=== PATIENT | female | born 1950 | race Caucasian/White ===

== ENCOUNTER 2017-01-31 06:12 | Observation (INO) | payer MEDICARE ==
[2017-01-31] VITALS (14 sets, daily range): BP systolic 86–164; BP diastolic 48–90; PULSE 66–81; RESP 16–22; TEMP 96–97.9; O2SAT 93–99
[~2017-01-31] VITALS: Ht 162.6 cm; Wt 60.0 kg
[~2017-01-31 06:12] MED LIST: ROBA750T3 PO; TYLE3 PO
[2017-01-31] MEDS ORDERED: ATOR20TA15 PO (07:19)
[2017-01-31] MEDS ORDERED: ASPI81TA11 PO (07:19)
[2017-01-31] MEDS ORDERED: MIDAZOLAM HCL 5 MG/5 ML VIAL ONE ×2 (07:39→15:02)
[2017-01-31] MEDS ORDERED: LIDOCAINE HCL 1% 20 ML VIAL ONE ×2 (07:57→15:01)
[2017-01-31] MEDS ORDERED: LORazepam 2 MG/ML VIAL ONE (08:33)
--- NOTE | 2017-01-31 09:44 | PD.RAD ---
Post CT Procedure Prog Note Pre Procedure Diagnosis: (1) Lung nodule Post Procedure Diagnosis: Procedure Date: Jan 31, 2017 Supervising Radiologist: Mark Mckeon Proceduralist/Assist: hannah escalera Estimated blood loss: none Anesthesia: Conscious Sedation Plan of Activity Patient to Unit: ROPU Patient Condition: Good Additional Comments: small pneumothorax on left See PACS Report for procedural detail/treatment Mark Mckeon MD Jan 31, 2017 09:44
[2017-01-31] MEDS ORDERED: oxyCODONE/ACETAMINOPHEN 5 MG/325 MG TAB PO PRN ×2 (09:45→16:15)
--- NOTE | 2017-01-31 11:42 | RADRPT ---
EXAM DATE/TIME: 01/31/2017 10:26 [facility] COMPARISON: No previous studies available for comparison. INDICATIONS : Status post left lung biopsy. MEDICAL HISTORY : None. SURGICAL HISTORY : None. ENCOUNTER: Subsequent ACUITY: 1 day PAIN SCORE: 4/10 LOCATION: chest FINDINGS: A single frontal expiratory view of the chest was performed. Tiny left-sided pneumothorax. No mediast inal shift. Left apical nodule.. The cardio-mediastinal contours and bronchopulmonary markings are unremarkable for an expiratory exam . Osseous structures are intact. CONCLUSION: Tiny pneumothorax on the left. Mark Mckeon MD on January 31, 2017 at 11:38 Board Certified Radiologist. This report was verified electronically.
[2017-01-31] MEDS ORDERED: oxyCODONE/ACETAMINOPHEN 5 MG/325 MG TAB PO ONE (12:00)
--- NOTE | 2017-01-31 12:36 | RADRPT ---
EXAM DATE/TIME: 01/31/2017 12:27 [facility] COMPARISON: CHEST EXPIRATION ONLY, January 31, 2017, 10:26. INDICATIONS : Post lung biopsy. MEDICAL HISTORY : None. SURGICAL HISTORY : None. ENCOUNTER: Subsequent ACUITY: 1 day PAIN SCORE: 0/10 LOCATION: Left upper chest FINDINGS: A single frontal expiratory view of the chest was performed. Left apical pneumothorax measuring 1.4 c m pleural separation. No mediastinal shift. Left apical nodule. The cardio-mediastinal contours and bronchopulmonary markings are unremarkable for an expiratory exam . Osseous structures are intact. CONCLUSION: Slightly enlarging left pneumothorax. Mark Mckeon MD on January 31, 2017 at 12:34 Board Certified Radiologist. This report was verified electronically.
--- NOTE | 2017-01-31 14:52 | RADRPT ---
EXAM DATE/TIME: 01/31/2017 13:59 [facility] COMPARISON: CHEST EXPIRATION ONLY, January 31, 2017, 12:27. INDICATIONS : Post lung biopsy; suspected pneumothorax. MEDICAL HISTORY : None. SURGICAL HISTORY : None. ENCOUNTER: Subsequent ACUITY: 1 day PAIN SCORE: 5/10 LOCATION: Left upper chest FINDINGS: A single frontal expiratory view of the chest was performed. Enlarging left-sided pneumothorax. No me diastinal shift. The cardio-mediastinal contours and bronchopulmonary markings are unremarkable for an expiratory exam . Osseous structures are intact. CONCLUSION: Enlarging left-sided pneumothorax. Chest tube will be placed. Patient notified of these findings. Mark Mckeon MD on January 31, 2017 at 14:50 Board Certified Radiologist. This report was verified electronically.
--- NOTE | 2017-01-31 15:13 | RADRPT ---
EXAM DATE/TIME: 01/31/2017 08:45 [facility] COMPARISON: No previous studies available for comparison. INDICATIONS : Left lung nodule. SEDATION TIME: 40 minutes BIOPSY SITE: Left MEDICATION(S): 1.) 2 mg midazolam (Versed) IV 2.) 100 mcg fentanyl (Sublimaze) IV DEVICE(S): 1.) 20 gauge Temno core biopsy needle MEDICAL HISTORY : Chronic obstructive pulmonary disease. SURGICAL HISTORY : None. ENCOUNTER: Initial ACUITY: 1 day PAIN SCORE: 0/10 LOCATION: Left chest A total of three core specimen(s) were obtained and sent to the laboratory for pathologic evaluation. PROCEDURE: 1. CT guided lung biopsy. 2. Conscious sedation with continuous EKG and oximetry monitoring. 3. EKG and oximetry remained stable throughout the procedure. Prior to the procedure informed consent was obtained. Any appropriate prior imaging studies were rev iewed. Using automated exposure control and adjustment of the mA and/or kV according to patient size, radiation dose was kept as low as reasonably achievable to obtain optimal diagnostic quality images. DICOM format image data is available electronically for review and comparison. The site was prepped in a sterile fashion. Full sterile technique was used, including cap, mask, chris rile gloves and gown and a large sterile sheet. Hand hygiene and 2% chlorhexidine and/or betadine/al cohol prep was utilized per protocol for cutaneous antisepsis. The skin and subcutaneous tissues wer e infiltrated with local anesthetic solution. With CT guidance the previously identified target was localized. Biopsy was performed using the presc ribed needle as above. Adequate hemostasis was obtained with compression at the puncture site. Follow-up CT scan reveals small pneumothorax. Conscious sedation was performed with the prescribed dosages and duration as above in the presence of an independent trained radiology nurse to assist in the monitoring of the patient. EKG and oximetry remained stable throughout the procedure. The patient tolerated the procedure well and there were no complications. The patient was sent to Radiology Outpatient Unit in stable condition. CONCLUSION: Successful CT guided biopsy of spiculated nodule left upper lobe. Small pneumothorax will be monitor ed with serial chest x-rays. Mark Mckeon MD on January 31, 2017 at 15:10 Board Certified Radiologist. This report was verified electronically.
--- NOTE | 2017-01-31 16:13 | PD.RAD ---
Post CT Procedure Prog Note Pre Procedure Diagnosis: (1) Mediastinal lymphadenopathy (2) Pneumothorax of left lung after biopsy (3) Lung nodule Post Procedure Diagnosis: Procedure Date: Jan 31, 2017 Supervising Radiologist: Mark Mckeon Proceduralist/Assist: hannah chow Estimated blood loss: none Anesthesia: Conscious Sedation Plan of Activity Patient to Unit: ROPU Patient Condition: Good See PACS Report for procedural detail/treatment Mark Mckeon MD Jan 31, 2017 16:13
[2017-01-31] MEDS ORDERED: MORPHINE SULFATE 4 MG/ML INJ IV PUSH STA (16:34)
[2017-01-31] MEDS ORDERED: ONDANSETRON HCL 4 MG/2 ML VIAL IV PUSH PRN (16:45)
--- NOTE | 2017-01-31 16:50 | HHI.HP ---
HPI Service [facility] Hospitalists Primary Care Physician Rafy Barahona, DO Admission Diagnosis Pneumothorax Chief Complaint: SOB Travel History International Travel<30 Days: No Contact w/Intl Traveler <30 Da: No Traveled to Known Affected Are: No History of Present Illness Mrs. Morrow is a pleasant 66 y/o female with COPD, tobacco use, and hyperlipidemia who was recently found to have a 1cm left upper lung mass. She reported to [facility] today to have a CT guided lung biopsy. Pt was noted to initially have a small pneumothorax following biopsy and was monitored in Radiology with serial CXR but unfortunately the pneumothorax enlarged and a CT was placed. Patient is being admitted for CT management and symptoms control. She is having quite a bit of pain with deep breathing on the left chest and some discomfort from the CT tube itself. She is on NC currently. Pt has continued to smoke prior to this admission, 1ppd x 45 years (since age 21). Denies any dizziness, palpitations, chest pain, abd pain, nausea/vomiting, fevers or chills. Review of Systems Constitutional: DENIES: Fever, Chills Eyes: DENIES: Vision loss Ears, nose, mouth, throat: DENIES: Hearing loss Respiratory: COMPLAINS OF: Shortness of breath, DENIES: Cough Cardiovascular: DENIES: Chest pain, Dyspnea on Exertion Gastrointestinal: DENIES: Abdominal pain, Constipation, Nausea, Vomiting Genitourinary: DENIES: Hematuria Musculoskeletal: DENIES: Back pain, Neck pain Integumentary: DENIES: Rash Neurologic: DENIES: Headache Psychiatric: DENIES: Confusion Past Family Social History Past Medical History COPD Tobacco use Hyperlipidemia Rheumatoid arthritis Polymyalgia rheumatica Thyroid nodule Past Surgical History Excision of Sheikh's Neuroma, 1979 Reported Medications Aspirin EC (Aspirin) 81 Mg Tabdr 81 Mg PO DAILY Atorvastatin (Atorvastatin Calcium) 20 Mg Tab 20 Mg PO HS Allergies: Coded Allergies: amoxicillin (Verified Adverse Reaction, Intermediate, Diarrhea, 01/31/17) Family History Patient is adopted, biological family history is unknown Pt has a daughter in her 40's who is healthy Social History (+)Tobacco use, 1ppd x 45 years Denies any alcohol use Physical Exam Vital Signs Vital Signs Date Time Temp Pulse Resp B/P (MAP) Pulse Ox O2 Delivery O2 Flow Rate FiO2 01/31/17 12:30 66 18 86/59 (68) 97 01/31/17 12:00 69 18 110/72 (85) 97 01/31/17 11:00 71 16 129/76 (93) 96 01/31/17 10:37 68 16 161/90 (113) 94 01/31/17 10:00 69 16 111/70 (84) 94 01/31/17 09:45 67 16 114/63 (80) 94 01/31/17 09:30 97.9 73 18 133/72 (92) 93 01/31/17 09:30 97.8 73 18 133/72 (92) 93 01/31/17 07:00 94 Room Air 01/31/17 06:48 97.9 74 20 121/77 (92) 94 Physical Exam GENERAL: This is a well-nourished, well-developed patient, in no apparent distress. SKIN: No rashes, ecchymoses or lesions. Cool and dry. HEENT: Atraumatic. Normocephalic. No temporal or scalp tenderness. No scleral icterus. Airway patent. NECK: Trachea midline, supple, nontender. CARDIO: Regular. RESP: Decreased air movement on the left side, CT in the left upper chest ABD: +BS, soft, non-tender, nondistended. EXT: Extremities without clubbing, cyanosis, or edema. NEURO: Awake and alert. Motor and sensory grossly within normal limits. Normal speech. Imaging Last Impressions Chest X-Ray 01/31/17 1030 Signed Impressions: Service Date/Time: January 10:26 - CONCLUSION: Tiny pneumothorax on the left. Mark Mckeon MD Lung Biopsy CT 01/31/17 0000 Signed Impressions: Service Date/Time: January 08:45 - CONCLUSION: Successful CT guided biopsy of spiculated nodule left upper lobe. Small pneumothorax will be monitored with serial chest x-rays. Mark Mckeon MD Septic Shock Reassessment Heart: Regular rate and rhythm Lungs: Other Skin: Warm Caprini VTE Risk Assessment Caprini VTE Risk Assessment: Mod/High Risk (score >= 2) Caprini Risk Assessment Model Point Value = 1 Point Value = 2 Point Value = 3 Point Value = 5 Age 41-60 Minor surgery BMI > 25 kg/m2 Swollen legs Varicose veins or History of unexplained or recurrent spontaneous Oral contraceptives or hormone replacement Sepsis (< 1 month) Serious lung disease, including pneumonia (< 1 month) Abnormal pulmonary function Acute myocardial infarction Congestive heart failure (< 1 month) History of inflammatory bowel disease Medical patient at bed rest Age 61-74 Arthroscopic surgery Major open surgery (> 45 min) Laparoscopic surgery (> 45 min) Malignancy Confined to bed (> 72 hours) Immobilizing plaster cast Central venous access Age >= 75 History of VTE Family history of VTE Factor V Leiden Prothrombin [id number] Lupus anticoagulant Anticardiolipin antibodies Elevated serum homocysteine Heparin-induced thrombocytopenia Other congenital or acquired thrombophilia Stroke (< 1 month) Elective arthroplasty Hip, pelvis, or leg fracture Acute spinal cord injury (< 1 month) Prophylaxis Regimen Total Risk Factor Score Risk Level Prophylaxis Regimen 0-1 Low Early ambulation 2 Moderate Order ONE of the following: *Sequential Compression Device (SCD) *Heparin 5000 units SQ BID 3-4 Higher Order ONE of the following medications: *Heparin 5000 units SQ TID *Enoxaparin/Lovenox 40 mg SQ daily (WT < 150 kg, CrCl > 30 mL/min) *Enoxaparin/Lovenox 30 mg SQ daily (WT < 150 kg, CrCl > 10-29 mL/min) *Enoxaparin/Lovenox 30 mg SQ BID (WT < 150 kg, CrCl > 30 mL/min) AND/OR *Sequential Compression Device (SCD) 5 or more Highest Order ONE of the following medications: *Heparin 5000 units SQ TID (Preferred with Epidurals) *Enoxaparin/Lovenox 40 mg SQ daily (WT < 150 kg, CrCl > 30 mL/min) *Enoxaparin/Lovenox 30 mg SQ daily (WT < 150 kg, CrCl > 10-29 mL/min) *Enoxaparin/Lovenox 30 mg SQ BID (WT < 150 kg, CrCl > 30 mL/min) AND *Sequential Compression Device (SCD) Assessment and Plan Problem List: (1) Pneumothorax of left lung after biopsy ICD Codes: J95.811 - Postprocedural pneumothorax Status: Acute Plan: - Pt is a 66 y/o female with COPD, tobacco abuse and hyperlipidemia - She was admitted to radiology for CT guided lung biopsy for a recently noted left lung mass which was noted on CT Thorax (01/10/17) which noted 1cm spiculated soft tissue mass in the left upper lobe posteriorly, highly suggestive of lung carcinoma. - Pt had CT guided biopsy on 01/31 and unfortunately developed a left sided pneumothorax. This was monitored with repeat CXR but the pneumothorax enlarged and pt had CT placed in left upper chest today - Radiology to manage CT - Repeat CXR in AM - Labs in AM - Supplemental O2 - Pain control PRN - Telemetry - DVT prophylaxis with SCDs (2) Lung nodule ICD Codes: R91.1 - Solitary pulmonary nodule Status: Chronic Plan: - See above (3) Tobacco abuse ICD Codes: Z72.0 - Tobacco use Status: Chronic Plan: - Chronic tobacco use, 1ppd x 45 years - Pt declined nicotine patch (4) Hyperlipidemia ICD Codes: E78.5 - Hyperlipidemia, unspecified Status: Chronic Chika Lan Jan 31, 2017 16:50
--- NOTE | 2017-01-31 16:54 | RADRPT ---
EXAM DATE/TIME: 01/31/2017 16:46 [facility] COMPARISON: CHEST EXPIRATION ONLY, January 31, 2017, 13:59. INDICATIONS : Post chest tube placement; pneumothorax. MEDICAL HISTORY : None. SURGICAL HISTORY : None. ENCOUNTER: Subsequent ACUITY: 1 day PAIN SCORE: 9/10 LOCATION: Left upper chest FINDINGS: Single frontal chest demonstrate a well-positioned 8 [place]ian small bore chest tube. There is complete reinflation of the left lung. There is minimal emphysematous change within the left chest wall. The p atient's left apical lung nodule and mediastinal adenopathy are not visible by chest x-ray. The right lung is clear. The bony structures are intact. CONCLUSION: 1. Left chest tube in good position with no evidence of pneumothorax. Abner Spence MD on January 31, 2017 at 16:52 Board Certified Radiologist. This report was verified electronically.
[2017-01-31] MEDS: ACETAMINOPHEN/HYDROcodone 325 MG/5 MG TAB PO PRN (18:05)
[2017-01-31] MEDS: MORPHINE SULFATE 4 MG/ML INJ IV PUSH PRN (20:19)
[2017-02-01] MEDS: ACETAMINOPHEN/HYDROcodone 325 MG/5 MG TAB PO PRN ×3 (00:11→12:13)
[2017-02-01 00:28] VITALS: BP 118/54; PULSE 71; RESP 21; TEMP 97.1; O2SAT 97
[2017-02-01 04:50] VITALS: BP 121/60; PULSE 72; RESP 19; TEMP 97; O2SAT 94
[2017-02-01 06:50] LABS: BASOPHIL % 0.8 % (0.0-2.0); EOSINOPHIL # 0.2 TH/MM3 (0-0.4); EOSINOPHIL % 3.6 % (0.0-4.0); HEMATOCRIT 35.6 % (35.0-46.0); HEMO FLAGS DIFF FINAL; LYMPH % 20.9 % (9.0-44.0); MEAN CELL VOLUME 85.2 FL (80.0-100.0); MEAN CORPUSCULAR HEMOGLOBIN 28.1 PG (27.0-34.0); MEAN CORPUSCULAR HGB CONC 32.9 % (32.0-36.0); MONO % 11.6 % (0.0-8.0); NEUT % 63.1 % (16.0-70.0); PLATELET COUNT 280 TH/MM3 (150-450); RED BLOOD COUNT 4.18 MIL/MM3 (4.00-5.30); RED CELL DISTRIBUTION WIDTH 15.5 % (11.6-17.2); WHITE BLOOD COUNT 4.8 TH/MM3 (4.0-11.0)
[2017-02-01 07:14] LABS: BICARBONATE 27.9 MEQ/L (21.0-32.0); POTASSIUM 4.4 MEQ/L (3.5-5.1)
[2017-02-01 07:31] VITALS: BP 99/54; PULSE 70; RESP 17; TEMP 95.1; O2SAT 96
--- NOTE | 2017-02-01 07:49 | RADRPT ---
EXAM DATE/TIME: 02/01/2017 06:36 [facility] COMPARISON: CHEST EXPIRATION ONLY, January 31, 2017, 16:46. INDICATIONS : Post left lung biopsy. Evaluate for pneumothorax. MEDICAL HISTORY : None. SURGICAL HISTORY : None. ENCOUNTER: Subsequent ACUITY: 2 days PAIN SCORE: 0/10 LOCATION: Left chest FINDINGS: A single frontal expiratory view of the chest was performed. The lungs are symmetrically aerated and clear. No evidence of pneumothorax. Mediastinal structures are in the midline. Subcutaneous emphys fortunato on the left. Left-sided chest tube is again seen. The cardio-mediastinal contours and bronchopulmonary markings are unremarkable for an expiratory exam . Osseous structures are intact. CONCLUSION: Left chest tube without pneumothorax. Mark Mckeon MD on February 01, 2017 at 7:45 Board Certified Radiologist. This report was verified electronically.
--- NOTE | 2017-02-01 07:56 | RADRPT ---
EXAM DATE/TIME: 01/31/2017 15:15 [facility] COMPARISON: No previous studies available for comparison. INDICATIONS : Mediastinal lymph node biopsy SEDATION TIME: 30 minutes BIOPSY SITE: Mediastinal lymph node MEDICATION(S): 1.) 2.5 mg midazolam (Versed) IV 2.) 125 mcg fentanyl (Sublimaze) IV DEVICE(S): 1.) 20 gauge Temno core biopsy needle MEDICAL HISTORY : Chronic obstructive pulmonary disease. Arthritis. SURGICAL HISTORY : None. ENCOUNTER: Initial ACUITY: 1 day PAIN SCORE: 0/10 LOCATION: chest A total of two core specimen(s) were obtained and sent to the laboratory for pathologic evaluation. PROCEDURE: 1. CT guided mediastinallymph node biopsy. Prior to the procedure informed consent was obtained. Any appropriate prior imaging studies were rev iewed. Using automated exposure control and adjustment of the mA and/or kV according to patient size, radiat ion dose was kept as low as reasonably achievable to obtain optimal diagnostic quality images. DICOM format image data is available electronically for review and comparison. The site was prepped in a sterile fashion. Full sterile technique was used, including cap, mask, chris rile gloves and gown and a large sterile sheet. Hand hygiene and 2% chlorhexidine and/or betadine/al cohol prep was utilized per protocol for cutaneous antisepsis. The skin and subcutaneous tissues wer e infiltrated with local anesthetic solution. With CT guidance the previously identified target was localized. Biopsy was performed using the presc ribed needle as above. Adequate hemostasis was obtained with compression at the puncture site. Follow-up CT scan reveals no hemorrhage. The patient tolerated the procedure well and there were no complications. The patient was returned to the Radiology Outpatient Unit in stable condition. CONCLUSION: Uncomplicated CT guided biopsy of the anterior mediastinal lymph node. Once the mediastinal lymph nod e was biopsied and anterior chest tube was placed on the left. Mark Mckeon MD on February 01, 2017 at 7:53 Board Certified Radiologist. This report was verified electronically.
--- NOTE | 2017-02-01 07:57 | RADRPT ---
EXAM DATE/TIME: 01/31/2017 15:15 INDICATIONS : Left pneumothorax SEDATION TIME: 30 minutes MEDICATION(S): 1.) 2.5 mg midazolam (Versed) IV 2.) 125 mcg fentanyl (Sublimaze) IV DEVICE(S): 1.) 8 Fr Linn MEDICAL HISTORY : Chronic obstructive pulmonary disease. Arthritis. SURGICAL HISTORY : None. ENCOUNTER: Initial ACUITY: 1 day PAIN SCORE: 0/10 LOCATION: chestTube PROCEDURE: 1.) Conscious sedation with continuous EKG and oximetry monitoring. PROCEDURE : 1. CT guided chest tube placement. 2. Conscious sedation with continuous EKG and oximetry monitoring. The risks, benefits and alternatives to the procedure were explained and verbal and written consent w as obtained. The site was prepped in sterile fashion. Full sterile technique was used, including ca p, mask, sterile gloves and gown and a large sterile sheet. Hand hygiene and 2% chlorhexidine and/or betadine/alcohol prep was utilized per protocol for cutaneous antisepsis. The skin and subcutaneous tissues were infiltrated with local anesthetic solution. Using automated exposure control and adjus tment of the mA and/or kV according to patient size, radiation dose was kept as low as reasonably ach ievable to obtain optimal diagnostic quality images. DICOM format image data is available electronic ally for review and comparison. With CT guidance the chest was punctured and the prescribed catheter was placed in the lung apex. Wal l suction was applied. Post procedure images demonstrate satisfactory position of the tube. The cat heter was sutured in place and a Percu-Stay was applied. Conscious sedation was performed with the prescribed dosages and duration as above. The patient elvis ated the procedure well and there were no complications. EKG and oximetry remained stable throughout the procedure. The patient was sent to post anesthesia recovery in stable condition. CONCLUSION: Uncomplicated chest tube placement as above. Mark Mckeon MD on February 01, 2017 at 7:55 Board Certified Radiologist. This report was verified electronically.
[2017-02-01] MEDS: MORPHINE SULFATE 4 MG/ML INJ IV PUSH PRN (08:45)
--- NOTE | 2017-02-01 09:09 | HHI.PR ---
Subjective Remarks Pt reports continued pain with deep breathing but mainly in the area of the CT She is very anxious about her biopsy results. Objective Vitals Vital Signs Date Time Temp Pulse Resp B/P (MAP) Pulse Ox O2 Delivery O2 Flow Rate FiO2 02/01/17 07:31 95.1 70 17 99/54 (69) 96 02/01/17 04:50 97.0 72 19 121/60 (80) 94 02/01/17 00:28 97.1 71 21 118/54 (75) 97 01/31/17 20:20 96.0 81 22 114/48 (70) 99 01/31/17 18:45 78 01/31/17 17:42 Nasal Cannula 2.00 01/31/17 17:25 79 16 131/87 (102) 97 01/31/17 17:02 70 16 131/81 (98) 97 01/31/17 16:45 78 16 152/87 (108) 97 01/31/17 16:30 97.6 75 16 164/89 (114) 95 01/31/17 12:30 66 18 86/59 (68) 97 01/31/17 12:00 69 18 110/72 (85) 97 01/31/17 11:00 71 16 129/76 (93) 96 01/31/17 10:37 68 16 161/90 (113) 94 01/31/17 10:00 69 16 111/70 (84) 94 01/31/17 09:45 67 16 114/63 (80) 94 01/31/17 09:30 97.9 73 18 133/72 (92) 93 01/31/17 09:30 97.8 73 18 133/72 (92) 93 Result Diagram: 02/01/1731 02/01/17630 Other Results Laboratory Tests Test 02/01/17 06:31 White Blood Count 4.8 TH/MM3 Red Blood Count 4.18 MIL/MM3 Hemoglobin 11.7 GM/DL Hematocrit 35.6 % Mean Corpuscular Volume 85.2 FL Mean Corpuscular Hemoglobin 28.1 PG Mean Corpuscular Hemoglobin Concent 32.9 % Red Cell Distribution Width 15.5 % Platelet Count 280 TH/MM3 Mean Platelet Volume 7.5 FL Neutrophils (%) (Auto) 63.1 % Lymphocytes (%) (Auto) 20.9 % Monocytes (%) (Auto) 11.6 % Eosinophils (%) (Auto) 3.6 % Basophils (%) (Auto) 0.8 % Neutrophils # (Auto) 3.0 TH/MM3 Lymphocytes # (Auto) 1.0 TH/MM3 Monocytes # (Auto) 0.6 TH/MM3 Eosinophils # (Auto) 0.2 TH/MM3 Basophils # (Auto) 0.0 TH/MM3 CBC Comment DIFF FINAL Differential Comment Blood Urea Nitrogen 19 MG/DL Creatinine 0.89 MG/DL Random Glucose 90 MG/DL Calcium Level 8.3 MG/DL Sodium Level 138 MEQ/L Potassium Level 4.4 MEQ/L Chloride Level 105 MEQ/L Carbon Dioxide Level 27.9 MEQ/L Anion Gap 5 MEQ/L Estimat Glomerular Filtration Rate 63 ML/MIN Imaging Last Impressions Chest X-Ray 02/01/17 0000 Signed Impressions: Service Date/Time: Wednesday, February 01, 2017 06:36 - CONCLUSION: Left chest tube without pneumothorax. Mark Mckeon MD Lymph Node Biopsy CT 01/31/17 0000 Signed Impressions: Service Date/Time: January 15:15 - CONCLUSION: Uncomplicated CT guided biopsy of the anterior mediastinal lymph node. Once the mediastinal lymph node was biopsied and anterior chest tube was placed on the left. Mark Mckeon MD Lung Biopsy CT 01/31/17 0000 Signed Impressions: Service Date/Time: January 08:45 - CONCLUSION: Successful CT guided biopsy of spiculated nodule left upper lobe. Small pneumothorax will be monitored with serial chest x-rays. Mark Mckeon MD Chest Tube Insertion 01/31/17 0000 Signed Impressions: Service Date/Time: January 15:15 - CONCLUSION: Uncomplicated chest tube placement as above. Mark Mckoen MD Last Impressions Chest X-Ray 01/31/17 1030 Signed Impressions: Service Date/Time: January 10:26 - CONCLUSION: Tiny pneumothorax on the left. Mark Mckeon MD Lung Biopsy CT 01/31/17 0000 Signed Impressions: Service Date/Time: January 08:45 - CONCLUSION: Successful CT guided biopsy of spiculated nodule left upper lobe. Small pneumothorax will be monitored with serial chest x-rays. Mark Mckeon MD PET/CT (01/24/17): 1. Left upper lobe nodule is suspicious for malignancy 2. There are lymph nodes within the mediastinum also concerning for metastatic disease although they are nonspecific. Objective Remarks General: NAD, AAOx3 Chest: CTA, pig tail catheter in the left chest Cardiac: Regular Abd: +BS, soft ND/NT Ext: No edema A/P Problem List: (1) Pneumothorax of left lung after biopsy ICD Codes: J95.811 - Postprocedural pneumothorax Status: Acute Plan: - Pt is a 66 y/o female with COPD, tobacco abuse and hyperlipidemia - She was admitted to radiology for CT guided lung biopsy for a recently noted left lung mass which was noted on CT Thorax (01/10/17) which noted 1cm spiculated soft tissue mass in the left upper lobe posteriorly, highly suggestive of lung carcinoma. - She had an outpt PET/CT (01/24/17) which noted left upper lobe nodule is suspicious for malignancy and lymph nodes within the mediastinum also concerning for metastatic disease although they are nonspecific. - Pt had CT guided biopsy of the lesion as well as a mediastinal lymph node on and unfortunately she developed a left sided pneumothorax. This was monitored with repeat CXR but the pneumothorax enlarged and pt had CT placed in left upper chest - CT was placed to suction. - Repeat CXR today noted no pneumothorax and CT was placed to water seal. - Repeat CXR in 4 hours. - Pt is off supplemental O2 - Pain control PRN - Telemetry - DVT prophylaxis with SCDs (2) Lung nodule ICD Codes: R91.1 - Solitary pulmonary nodule Status: Chronic Plan: - See above (3) Tobacco abuse ICD Codes: Z72.0 - Tobacco use Status: Chronic Plan: - Chronic tobacco use, 1ppd x 45 years - Pt declined nicotine patch (4) Hyperlipidemia ICD Codes: E78.5 - Hyperlipidemia, unspecified Status: Chronic Assessment and Plan Patient examined. Assessment and plan formulated with Chika Lan PA-C. I agree with the above. LEFT LUNG MASS WITH PET POSITIVITY AND CONCERN FOR SPREAD TO MEDIASTINAL LN. S/P BX AT BOTH SITES. PTX WITH CHEST TUBE. PLACE TO SEAL AND CXR 4HRS. D/C HOME IF STABLE WITH F/U PCP FOR BX RESULT AND APPROPRIATE REFERRALS NEEDED. Chika Lan 22, 2017 09:08 Lopez Lion MD Feb 01, 2017 10:31
[2017-02-01 09:30] VITALS: O2SAT 94
--- NOTE | 2017-02-01 10:11 | HHI.DCPOC ---
Discharge Care Plan Diagnosis: (1) Hyperlipidemia (2) Tobacco abuse (3) Lung nodule (4) Mediastinal lymphadenopathy (5) Pneumothorax of left lung after biopsy Goals to Promote Your Health * To prevent worsening of your condition and complications * To maintain your health at the optimal level Directions to Meet Your Goals Take your medications as prescribed Follow your dietary instruction Follow activity as directed Keep your appointments as scheduled Take your immunizations and boosters as scheduled If your symptoms worsen call your PCP, if no PCP go to Urgent Care Center or Emergency Room Smoking is Dangerous to Your Health. Avoid second hand smoke Call the 24-hour hour crisis hotline for domestic abuse at Chika Lan Feb 01, 2017 10:11
[2017-02-01 11:42] VITALS: BP 120/63; PULSE 78; RESP 17; TEMP 97.6; O2SAT 96
[2017-02-01 12:26] VITALS: BP 137/67; PULSE 80; RESP 16; TEMP 97.5; O2SAT 94
--- NOTE | 2017-02-01 13:10 | RADRPT ---
EXAM DATE/TIME: 02/01/2017 12:40 [facility] COMPARISON: CHEST EXPIRATION ONLY, February 01, 2017, 6:36. INDICATIONS : Chest tube, post biopsy. MEDICAL HISTORY : None. SURGICAL HISTORY : None. ENCOUNTER: Subsequent ACUITY: 2 days PAIN SCORE: 0/10 LOCATION: Bilateral chest FINDINGS: A single view of the chest demonstrates the lungs to be symmetrically aerated without evidence of mas s, infiltrate or effusion. The cardiomediastinal contours are unremarkable. No pneumothorax. Subcuta neous emphysema laterally on the left. Osseous structures are intact. CONCLUSION: No pneumothorax. Subcutaneous emphysema. Mark Mckeon MD on February 01, 2017 at 13:07 Board Certified Radiologist. This report was verified electronically.
[2017-02-01] MEDS ORDERED: HYDR-3516 PO (14:05)
== END 2017-02-01 16:36 | disposition home or self-care (01) ==
LOC: HRAD 06:12 → HRIP 06:20 → HRAD 17:52 → N06A 17:55
PROVIDERS: ADMIT Hospitalist; ATTEND Hospitalist
DX: J95.811 Postprocedural pneumothorax (principal); R91.1 Solitary pulmonary nodule; R59.0 Localized enlarged lymph nodes; J44.9 Chronic obstructive pulmonary disease, unspecified; E78.5 Hyperlipidemia, unspecified; E04.1 Nontoxic single thyroid nodule; M06.9 Rheumatoid arthritis, unspecified; M35.3 Polymyalgia rheumatica; Z72.0 Tobacco use
CPT/HCPCS: 32405; 32557; 38505; 71010; 77012; 80048; 85025; 88307; 96374; 96376; 99152; 99153; C1729; G0378; J2060; J2250; J2270; J3010; 88305

== ENCOUNTER → 2017-02-26 | Outpatient (CLI) | payer MEDICARE ==
[~2017-02-26] MED LIST changes: +ASPI81TA11 PO; +ATOR20TA15 PO; +HYDR-3516 PO; -ROBA750T3 PO; -TYLE3 PO
--- NOTE | 2017-02-27 11:04 | RSPPFT ---
DATE OF PROCEDURE: 02/26/17 COMMENTS: Spirometry with FVC of 1.8, FEV1 of 1.0 FEV1/FVC ratio at 53%. Slow vital capacity is 65% of predicted. TLC is 89%. Diffusion capacity is 43%. IMPRESSION: 1. Severe airways obstruction. 2. Positive but non-significant response to acutely inhaled bronchodilator. 3. No evidence of airways restriction. 4. Moderate reduction in diffusion capacity.
== END ==
LOC: PHRSP 09:33
PROVIDERS: ATTEND Internal Medicine Hematology
DX: C34.82 Malignant neoplasm of overlapping sites of left bronchus and lung (principal); J44.9 Chronic obstructive pulmonary disease, unspecified
CPT/HCPCS: 94060; 94726; 94729